=== PATIENT | female | born 1985 | race Caucasian/White ===

== ENCOUNTER 2018-02-02 12:26 | Emergency (ER) | payer BC ==
[~2018-02-02] VITALS: Ht 152.4 cm; Wt 45.8 kg
[2018-02-02] MEDS ORDERED: SYNTHROID25 MCG ORAL (12:35)
--- NOTE | 2018-02-02 12:42 | Emergency Room Report ---
History of Present Illness General Chief Complaint: Eye Problems Source: Patient Present Illness HPI 32-year-old female patient presents ER complaining of right side foreign-body sensation. Patient reports that she was working at her computer when she suddenly felt like "something in my eye". Reports feels like its under upper eyelid. Reports that she attempted to "remove it for the past hour". patient denies vision loss, redness, itching, other patient problems. Denies wearing contacts or glasses. Denies exposure to chemicals or other liquids into eye. Denies fever, chest pain, shortness of breath. States up to date on tetanus vaccination. Allergies: Coded Allergies: SULFA (SULFONAMIDE ANTIBIOTICS) (Verified Allergy, Unknown, 02/02/18) Patient History Past Medical History: see triage record Now: No Reviewed Nursing Documentation: PMH: Agreed; PSxH: Agreed Nursing Documentation-PMH Past Medical History: No History, Except For Hx Diabetes: No - hypothyroid Review of Systems All Other Systems: negative except mentioned in HPI Physical Exam Vital Signs Date Time Temp Pulse Resp B/P (MAP) Pulse Ox O2 Delivery O2 Flow Rate FiO2 02/02/18 12:30 98.4 92 18 108/78 99 Room Air Sp02 EP Interpretation: reviewed, normal General Appearance: well appearing, no apparent distress, alert, GCS 15, non- toxic Head: normocephalic, atraumatic Eyes: bilateral eye normal inspection, bilateral eye PERRL, bilateral eye EOMI ENT: hearing grossly normal, normal pharynx, no angioedema, normal voice, uvula midline, moist mucus membranes Neck: full range of motion Respiratory: lungs clear, normal breath sounds, no rhonchi, no respiratory distress, no accessory muscle use, no wheezing, speaking full sentences Cardiovascular #1: regular rate, rhythm, no edema Neurologic: alert, oriented x3, responsive, motor strength/tone normal, sensory intact Psychiatric: mood/affect normal Skin: no rash Medical Decision Making PA Attestation Dr. Whipple is my supervising Physician whom patient management has been discussed with. Diagnostic Impression: Primary Impression: Sensation of foreign body in eye ER Course Pt. presents to the ED c/o foreign body sensation right eye. Ddx considered but are not limited to FB in eye, corneal abrasion, corneal ulcer , blepharitis, orbital blowout fracture, subconjunctival hemorrhage. Patient has no signs of surrounding cellulitis, no pain with eye movement, does not require imaging at this time. No reduction in VA, no cilliary flush, no photophobia, no corneal opacity, low suspicion for keratitis, iritis. Vital signs: are WNL, pt. is afebrile VISUAL ACUITY, see Nurse's note ER COURSE: on physical exam, no conjunctival injection, no visualized foreign body. On fluorescein stain, no corneal abrasion, negative Elena sign, no rust ring. no foreign body visualized with lid eversion. Eye flushed with Jakob's lens and 500cc NS. following eye flushing, patient reports pain symptoms improved, no longer feeling foreign body in eye. Will provided patient with erythromycin ophthalmic antibiotics to prevent infection. advised to take Tylenol for pain. Followup with marketing content specialist in 24 hours. ER precautions given. DISCHARGE: - Rx provided for erythromycin At this time pt. is stable for d/c to home. Will provide printed patient care instructions and any necessary prescriptions. Care plan and follow up instructions have been discussed with the patient prior to discharge Follow-up with enterprise systems architect in 24 hours. Follow-up with primary care provider in 3 -5 days. Take medications as directed. Patient questions asked and answered. ER precautions given, patient instructed to return to ER immediately for any new or worsening of symptoms. - Please note that this Emergency Department Report was dictated using Domino Streetsecretary receptionist technology software, occasionally this can lead to erroneous entry secondary to interpretation by the dictation equipment. Last Vital Signs Date Time Temp Pulse Resp B/P (MAP) Pulse Ox O2 Delivery O2 Flow Rate FiO2 02/02/18 12:30 98.4 92 18 108/78 99 Room Air Status: improved Disposition: HOME, SELF-CARE Condition: Stable Scripts Erythromycin Base (ERYTHROMYCIN*) 3.5 Gm Oint...g. 1 APPLIC RIGHT EYE BID, #3.5 GM 0 Refills Prov: Kristian Franco 02/02/18 Patient Instructions: Corneal Abrasion, [id number], Eye Foreign Body, Easy-to -Read Additional Instructions: Followup with marketing content specialist in 24 hours. Followup with primary care provider in 2-3 days. Take medications as directed. Patient questions asked and answered. ER precautions given, patient instructed to return to ER immediately for any new or worsening of symptoms. Kristian Franco Feb 02, 2018 12:42
[2018-02-02] MEDS ORDERED: Fluorescein Strips RIGHT EYE ONE (12:45)
[2018-02-02] MEDS ORDERED: Tetracaine 0.5% Opth 4ml Soln RIGHT EYE ONE (12:45)
[2018-02-02 13:03] VITALS: BP 112/65
[2018-02-02] MEDS ORDERED: ERYTHROMYCIN3.5 GM RIGHT EYE (13:54)
[2018-02-02 14:00] VITALS: BP 112/65
== END 2018-02-02 14:01 | disposition home or self-care (01) ==
LOC: EMR 12:45
DX: T15.91XA Foreign body on external eye, part unspecified, right eye, initial encounter (principal); X58.XXXA Exposure to other specified factors, initial encounter; Z88.2 Allergy status to sulfonamides; E03.9 Hypothyroidism, unspecified
CPT/HCPCS: 99283

== ENCOUNTER 2018-12-02 00:46 | Emergency (ER) | payer BC ==
[~2018-12-02] VITALS: Ht 152.4 cm; Wt 52.2 kg
[~2018-12-02 00:46] MED LIST: ERYTHROMYCIN3.5 GM RIGHT EYE; SYNTHROID25 MCG ORAL
[2018-12-02 01:15] LABS: APPEARANCE,URINE CLEAR; BILIRUBIN, URINE NEGATIVE (NEGATIVE); COLOR,URINE PALE YELLOW; GLUCOSE, URINE (UA) NEGATIVE (NEGATIVE); KETONES,URINE NEGATIVE (NEGATIVE); LEUKOCYTE ESTERASE ,URINE 1+ (NEGATIVE); NITRITE,URINE NEGATIVE (NEGATIVE); PH,URINE 7 (4.5-8.0); PROTEIN,URINE NEGATIVE (NEGATIVE); UROBILINOGEN,URINE NORMAL MG/DL (0.0-1.0)
--- NOTE | 2018-12-02 01:19 | Emergency Room Report ---
History of Present Illness General Chief Complaint: Abdominal Pain Source: Patient Present Illness HPI Presents with lower abdominal pain. It began at 8 in the morning. It became severe. She has been vomiting. Slightly better now. She tried taking ketorolac. She is also has got epigastric burning at this time. She was concerned because she felt that she was about to pass out. She does not believe she is at this time. Not taking control. She has had severe pain like this in the past. She had multiple ultrasounds in the past they have all been normal. She denies any fevers or chills. There is no dysuria. She feels nauseated also but no vomiting. No change in bowels. No fevers and chills. No headache. No vaginal discharge aside from beginning her normal menstrual bleeding. No chest pain or dyspnea. No headache. 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: current Reviewed Nursing Documentation: PMH: Agreed; PSxH: Agreed Nursing Documentation-PMH Hx Diabetes: No - hypothyroid Review of Systems All Other Systems: negative except mentioned in HPI Physical Exam Vital Signs Date Time Temp Pulse Resp B/P (MAP) Pulse Ox O2 Delivery O2 Flow Rate FiO2 12/02/18 00:49 98.1 117/76 (90) Sp02 EP Interpretation: reviewed, normal General Appearance: well appearing, GCS 15, mild distress - With pain Head: normocephalic Eyes: bilateral eye normal inspection, bilateral eye PERRL, bilateral eye EOMI ENT: moist mucus membranes Neck: supple Respiratory: lungs clear, normal breath sounds Cardiovascular #1: regular rate, rhythm Cardiovascular #2: 2+ radial (R) Gastrointestinal: normal inspection, normal bowel sounds, no mass, non- distended, no guarding, no rebound, tenderness - Suprapubic Genitourinary: no CVA tenderness, deferred - Pelvic exam not indicated Musculoskeletal: back normal, gait/station normal, normal range of motion Neurologic: alert, oriented x3, grossly normal Psychiatric: mood/affect normal - In pain Skin: no rash Medical Decision Making Diagnostic Impression: Primary Impression: Painful menstruation Additional Impression: Epigastric pain ER Course Patient presents with suprapubic pain coinciding with the beginning of her menstruation. Differential includes ectopic , urinary tract infection , ruptured ovarian cyst, dysmenorrhea, pelvic inflammatory disease, urinary tract infection amongst others. In addition she has epigastric burning. This is consistent with taking ketorolac. Based on exam doubt gallbladder or pancreatic etiologies. She states this is similar to the pain she has had before but this time felt almost near to passing out. Evaluation with labs. Based on history and exam ultrasound not indicated at this time. The patient will be treated with analgesia and also Pepcid and Reglan. Labs unremarkable. Slightly elevated BUN. Normal white count and H&H. Patient improved with treatment. Still complaining about epigastric burning. Mylanta and fentanyl ordered. Patient improved with treatment. Tolerating oral intake. Discussed treatment plan and the need to follow-up with her PHILOSOPHY FACULTY MEMBER. Also advised to return if pain is out of control or vomiting or fevers. Patient is stable for outpatient observation and treatment. Laboratory Tests Test 12/02/18 01:00 12/02/18 01:25 Urine Color Pale yellow Urine Appearance Clear Urine pH 7 (4.5-8.0) Urine Specific [place] 1.005 (1.005-1.035) Urine Protein Negative (NEGATIVE) Urine Glucose (UA) Negative (NEGATIVE) Urine Ketones Negative (NEGATIVE) Urine Blood 2+ (NEGATIVE) H Urine Nitrite Negative (NEGATIVE) Urine Bilirubin Negative (NEGATIVE) Urine Urobilinogen Normal MG/DL (0.0-1.0) Urine Leukocyte Esterase 1+ (NEGATIVE) H Urine RBC 5-10 /HPF (0 - 2) H Urine WBC 0-2 /HPF (0 - 2) Urine Squamous Epithelial Cells Few /LPF (NONE/OCC) Urine Bacteria None /HPF (NONE) Urine HCG, Qualitative Negative (NEGATIVE) White Blood Count 9.0 K/UL (4.8-10.8) Red Blood Count 3.92 M/UL (4.20-5.40) L Hemoglobin 12.7 G/DL (12.0-16.0) Hematocrit 36.6 % (37.0-47.0) L Mean Corpuscular Volume 94 FL (80-99) Mean Corpuscular Hemoglobin 32.4 PG (27.0-31.0) H Mean Corpuscular Hemoglobin Concent 34.7 G/DL (32.0-36.0) Red Cell Distribution Width 10.7 % (11.6-14.8) L Platelet Count 165 K/UL (150-450) Mean Platelet Volume 7.8 FL (6.5-10.1) Neutrophils (%) (Auto) 62.1 % (45.0-75.0) Lymphocytes (%) (Auto) 30.7 % (20.0-45.0) Monocytes (%) (Auto) 5.0 % (1.0-10.0) Eosinophils (%) (Auto) 1.4 % (0.0-3.0) Basophils (%) (Auto) 0.8 % (0.0-2.0) Prothrombin Time 10.0 SEC (9.30-11.50) Prothrombin Time INR 0.9 (0.9-1.1) PTT 24 SEC (23-33) Sodium Level 143 MMOL/L (136-145) Potassium Level 4.1 MMOL/L (3.5-5.1) Chloride Level 108 MMOL/L (98-107) H Carbon Dioxide Level 27 MMOL/L (21-32) Anion Gap 8 mmol/L (5-15) Blood Urea Nitrogen 26 mg/dL (7-18) H Creatinine 0.9 MG/DL (0.55-1.30) Estimate Glomerular Filtration Rate > 60 mL/min (>60) Glucose Level 95 MG/DL (74-106) Calcium Level 9.3 MG/DL (8.5-10.1) Total Bilirubin 0.3 MG/DL (0.2-1.0) Aspartate Amino Transferase (AST) 19 U/L (15-37) Alanine Aminotransferase (ALT) 14 U/L (12-78) Alkaline Phosphatase 44 U/L (46-116) L Total Protein 6.4 G/DL (6.4-8.2) Albumin 3.5 G/DL (3.4-5.0) Globulin 2.9 g/dL Albumin/Globulin Ratio 1.2 (1.0-2.7) Lipase 214 U/L (73-393) Last Vital Signs Date Time Temp Pulse Resp B/P (MAP) Pulse Ox O2 Delivery O2 Flow Rate FiO2 12/02/18 03:55 98.4 78 20 119/73 98 Status: improved Disposition: HOME, SELF-CARE Condition: Improved Scripts Mag Hydrox/Al Hydrox/Simeth (MAALOX MAXIMUM STRENGTH SUSP) 355 Ml Oral.susp 30 ML PO Q6HR PRN for epigastric pain, #240 ML Prov: Charles Dias MD 12/02/18 Hydrocodone Bit/Acetaminophen 5-325* (NORCO 5-325*) 1 Each Tablet 1 TAB ORAL Q6H PRN for For Pain, #6 TAB 0 Refills Prov: Charles Dias MD 12/02/18 Charles Dias MD Dec 02, 2018 01:19
[2018-12-02] MEDS ORDERED: Ketorolac 30mg Inj IV ONE (01:30)
[2018-12-02 01:34] LABS: BASOPHILS % (AUTO) 0.8 % (0.0-2.0); EOSINOPHILS % (AUTO) 1.4 % (0.0-3.0); HEMATOCRIT 36.6 % (37.0-47.0); HEMOGLOBIN 12.7 G/DL (12.0-16.0); LYMPHOCYTES % (AUTO) 30.7 % (20.0-45.0); MEAN CORPUSCULAR VOLUME 94 FL (80-99); NEUTROPHILS % (AUTO) 62.1 % (45.0-75.0); PLATELET COUNT 165 K/UL (150-450); RED BLOOD COUNT 3.92 M/UL (4.20-5.40); RED CELL DISTRIBUTION WIDTH 10.7 % (11.6-14.8)
[2018-12-02 01:48] LABS: ANION GAP 8 mmol/L (5-15); BLOOD UREA NITROGEN 26 mg/dL (7-18); CALCIUM 9.3 MG/DL (8.5-10.1); CARBON DIOXIDE 27 MMOL/L (21-32); CHLORIDE 108 MMOL/L (98-107); CREATININE 0.9 MG/DL (0.55-1.30); POTASSIUM 4.1 MMOL/L (3.5-5.1); SODIUM 143 MMOL/L (136-145)
[2018-12-02 01:52] LABS: ALANINE AMINOTRANSFERASE 14 U/L (12-78); ALBUMIN 3.5 G/DL (3.4-5.0); ALBUMIN/GLOBULIN RATIO 1.2 (1.0-2.7); ALKALINE PHOSPHATASE 44 U/L (46-116); ASPARTATE AMINO TRANSFERASE 19 U/L (15-37); BILIRUBIN,TOTAL 0.3 MG/DL (0.2-1.0)
[2018-12-02 02:08] LABS: INR 0.9 (0.9-1.1)
[2018-12-02] MEDS ORDERED: Mylanta II UD 30ml ORAL ONE (02:15)
[2018-12-02 02:30] VITALS: BP 121/79
[2018-12-02] MEDS ORDERED: fentaNYL 100 mcg/2 mL IV ONE (03:00)
[2018-12-02 03:30] VITALS: BP 119/73
[2018-12-02] MEDS ORDERED: MAALOX MAXIMUM355 M1 PO (03:44)
[2018-12-02] MEDS ORDERED: NORCO 5-325 TA1 EACH ORAL (03:44)
[2018-12-02 03:55] VITALS: BP 119/73
== END 2018-12-02 03:55 | disposition home or self-care (01) ==
LOC: EMR 01:20
DX: N94.6 Dysmenorrhea, unspecified (principal); R10.13 Epigastric pain; E03.9 Hypothyroidism, unspecified; Z88.2 Allergy status to sulfonamides
CPT/HCPCS: 36415; 80053; 81003; 81025; 83690; 85025; 85610; 85730; 96361; 96374; 96375; 99284; J1885; J2405; J3010; S0028

== ENCOUNTER 2019-12-06 11:00 | Emergency (ER) | payer BC ==
[~2019-12-06] VITALS: Ht 152.4 cm; Wt 52.2 kg
[~2019-12-06 11:00] MED LIST changes: +MAALOX MAXIMUM355 M1 PO; +NORCO 5-325 TA1 EACH ORAL
[2019-12-06] MEDS ORDERED: DiphenhydrAMINE 50mg/ml Inj IVP ONE (11:15)
[2019-12-06] MEDS ORDERED: Solu-MEDROL 125mg Inj IVP ONE (11:15)
--- NOTE | 2019-12-06 11:20 | NUR ---
ED Nurse Note: Unable to waste Benadryl 25 mg in system due to computer not loading. CN and special technical operations officer notified.
--- NOTE | 2019-12-06 11:30 | NUR ---
ED Nurse Note: Pt walked into ED for possible allergic reaction since 2 hours ago. She thinks they are from bug bites around bilateral ankles and feet. She feels as if throat is itchy and has cough since today. Denies nausea/vomiting.
--- NOTE | 2019-12-06 11:36 | Emergency Room Report ---
History of Present Illness General Chief Complaint: Skin Rash/Abscess Source: Patient Present Illness HPI Patient is a 34-year-old female denies any significant past medical history who presents to the ER complaining of allergic reaction to bug bites on her feet. Patient states that she has had multiple allergic reactions to bug bites in the past. She has Benadryl, Monik and prednisone if needed. She states that she took Monik but has not taken anything else. Patient states that she was bit 2 days ago. Patient states that today she started having shortness of breath and cough. She appears to be anxious. She denies any fever or chills. She denies any chest pain. She denies any recent travel. She denies any lower extremity pain or edema. She denies any history of smoking or drug use. She denies any family history of sudden or early cardiovascular disease. 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 COVID-19 Screening: Negative COVID-19 COVID-19 Testing Source: [facility] 1 month ago Patient History Now: No Reviewed Nursing Documentation: PMH: Agreed; PSxH: Agreed Nursing Documentation-PMH Past Medical History: No History, Except For Hx Diabetes: No - hypothyroid Review of Systems All Other Systems: negative except mentioned in HPI Physical Exam Vital Signs Date Time Temp Pulse Resp B/P (MAP) Pulse Ox O2 Delivery O2 Flow Rate FiO2 12/06/19 11:04 98.1 83 15 109/77 (88) 97 Room Air Sp02 EP Interpretation: reviewed, normal General Appearance: no apparent distress, alert, GCS 15, non-toxic Head: normocephalic, atraumatic Eyes: bilateral eye normal inspection, bilateral eye PERRL ENT: hearing grossly normal, normal pharynx, no angioedema, normal voice Neck: full range of motion, supple/symm/no masses Respiratory: chest non-tender, lungs clear, normal breath sounds, speaking full sentences Cardiovascular #1: regular rate, rhythm, no edema Gastrointestinal: normal bowel sounds, non tender, soft, non-distended, no guarding, no rebound Rectal: deferred Musculoskeletal: no calf tenderness, no lower extremity edema Neurologic: supervising architect III-XII nml as tested, oriented x3 Psychiatric: no suicidal/homicidal ideation, anxious Skin: other - Small bug bites with surrounding erythema to bilateral feet minimal edema Lymphatic: no adenopathy Medical Decision Making Diagnostic Impression: Primary Impression: Rash and other nonspecific skin eruption Additional Impression: Dyspnea ER Course Patient's vital signs stable. She appears anxious. Patient given Benadryl and IV steroids. She already has a Solu-Medrol Dosepak and allergy medicine at home. Patient also complained of some shortness of breath and cough. Her chest x-ray demonstrates no acute cardiopulmonary pathology. I suspect the sob the patient is presenting with is atypical in nature. Aortic dissection was considered but in the physical exam the patient has equal pulses in all extremities, no new focal neurological deficits, no apparent diastolic murmur on the cardiac exam, and no widening of the mediastinum on CXR. Pulmonary embolism was also considered however I believe patient to be low risk given d-dimer normal, normal heart rate, no evidence of hypoxemia, no significant unilateral leg swelling, no recent travel, no history of cancer, no right axis deviation on EKG, and no recent surgery. I also doubt that this is acute coronary syndrome since EKG shows no STEMI, troponin is normal, and no chest pain. The patient was counseled that, though unlikely, the possibility of an emergent cause of chest pain may still be present and that the patient should return immediately if symptoms persists or worsen. I believe the patient is stable for discharge to follow-up with their PMD. Laboratory Tests Test 12/06/19 11:30 White Blood Count 5.1 K/UL (4.8-10.8) Red Blood Count 4.55 M/UL (4.20-5.40) Hemoglobin 14.2 G/DL (12.0-16.0) Hematocrit 41.6 % (37.0-47.0) Mean Corpuscular Volume 91 FL (80-99) Mean Corpuscular Hemoglobin 31.3 PG (27.0-31.0) H Mean Corpuscular Hemoglobin Concent 34.2 G/DL (32.0-36.0) Red Cell Distribution Width 11.7 % (11.6-14.8) Platelet Count 217 K/UL (150-450) Mean Platelet Volume 9.4 FL (6.5-10.1) Neutrophils (%) (Auto) 46.3 % (45.0-75.0) Lymphocytes (%) (Auto) 43.6 % (20.0-45.0) Monocytes (%) (Auto) 7.3 % (1.0-10.0) Eosinophils (%) (Auto) 1.3 % (0.0-3.0) Basophils (%) (Auto) 1.5 % (0.0-2.0) D-Dimer 0.32 mg/L FEU (0.00-0.49) Urine Color Pale yellow Urine Appearance Clear Urine pH 8 (4.5-8.0) Urine Specific [place] 1.005 (1.005-1.035) Urine Protein Negative (NEGATIVE) Urine Glucose (UA) Negative (NEGATIVE) Urine Ketones Negative (NEGATIVE) Urine Blood Negative (NEGATIVE) Urine Nitrite Negative (NEGATIVE) Urine Bilirubin Negative (NEGATIVE) Urine Urobilinogen Normal MG/DL (0.0-1.0) Urine Leukocyte Esterase Negative (NEGATIVE) Urine HCG, Qualitative Negative (NEGATIVE) Sodium Level 137 MMOL/L (136-145) Potassium Level 4.1 MMOL/L (3.5-5.1) Chloride Level 103 MMOL/L (98-107) Carbon Dioxide Level 28 MMOL/L (21-32) Anion Gap 6 mmol/L (5-15) Blood Urea Nitrogen 15 mg/dL (7-18) Creatinine 0.8 MG/DL (0.55-1.30) Estimated Glomerular Filtration Rate > 60 mL/min (>60) Glucose Level 97 MG/DL (74-106) Calcium Level 9.3 MG/DL (8.5-10.1) Magnesium Level 2.3 MG/DL (1.8-2.4) Total Bilirubin 0.5 MG/DL (0.2-1.0) Aspartate Amino Transferase (AST) 18 U/L (15-37) Alanine Aminotransferase (ALT) 26 U/L (12-78) Alkaline Phosphatase 51 U/L (46-116) Troponin I 0.000 ng/mL (0.000-0.056) Total Protein 7.3 G/DL (6.4-8.2) Albumin 4.0 G/DL (3.4-5.0) Globulin 3.3 g/dL Albumin/Globulin Ratio 1.2 (1.0-2.7) EKG Diagnostic Results EKG Time: 11:30 EP Interpretation: Mckenna Mehta MD Rate: normal - 84 bpm Rhythm: NSR ST Segments: no acute changes ASA given to the pt in ED: No Chest X-Ray Diagnostic Results Chest X-Ray Diagnostic Results : Chest X-Ray Ordered: Yes # of Views/Limited/Complete: 1 View Indication: Shortness of Breath EP Interpretation: Yes Interpretation: no consolidation, no effusion, no pneumothorax, no acute cardiopulmonary disease Impression: No acute disease Electronically Signed by: Mckenna Mehta MD Last Vital Signs Date Time Temp Pulse Resp B/P (MAP) Pulse Ox O2 Delivery O2 Flow Rate FiO2 12/06/19 11:04 98.1 83 15 109/77 (88) 97 Room Air Disposition: HOME, SELF-CARE Condition: Stable Additional Instructions: The patient was provided with discharge instructions, notified to follow-up with a primary care doctor and or specialist in the next 24-48 hours, and to return to the ED if they have worsening of their symptoms. Please note that this report is being documented using EVR[employer] technology. This can lead to erroneous entry secondary to incorrect interpretation by the dictating instrument. Mckenna Mehta M.D. Dec 06, 2019 11:36
[2019-12-06 11:56] VITALS: BP 112/78
--- NOTE | 2019-12-06 12:00 | Diagnostic Imaging Report ---
EXAM: XR Chest, 1 View CLINICAL HISTORY: SOB TECHNIQUE: Frontal view of the chest. COMPARISON: None FINDINGS: Hardware: None. Lungs/pleura: Hyperinflation of the lungs. No focal consolidation. No pleural effusion or pneumothorax. Heart/mediastinum: Normal. No cardiomegaly. Soft tissues: Unremarkable. Bones: No acute fracture. Upper abdomen: Normal. IMPRESSION: No acute disease identified.
[2019-12-06 12:33] LABS: BASOPHILS % (AUTO) 1.5 % (0.0-2.0); EOSINOPHILS % (AUTO) 1.3 % (0.0-3.0); HEMATOCRIT 41.6 % (37.0-47.0); HEMOGLOBIN 14.2 G/DL (12.0-16.0); LYMPHOCYTES % (AUTO) 43.6 % (20.0-45.0); MEAN CORPUSCULAR VOLUME 91 FL (80-99); MONOCYTES % (AUTO) 7.3 % (1.0-10.0); NEUTROPHILS % (AUTO) 46.3 % (45.0-75.0); PLATELET COUNT 217 K/UL (150-450); RED BLOOD COUNT 4.55 M/UL (4.20-5.40); RED CELL DISTRIBUTION WIDTH 11.7 % (11.6-14.8); WHITE BLOOD COUNT 5.1 K/UL (4.8-10.8)
[2019-12-06 12:48] LABS: ANION GAP 6 mmol/L (5-15); APPEARANCE,URINE CLEAR; BILIRUBIN, URINE NEGATIVE (NEGATIVE); BLOOD UREA NITROGEN 15 mg/dL (7-18); CALCIUM 9.3 MG/DL (8.5-10.1); CARBON DIOXIDE 28 MMOL/L (21-32); CHLORIDE 103 MMOL/L (98-107); COLOR,URINE PALE YELLOW; CREATININE 0.8 MG/DL (0.55-1.30); GLUCOSE, URINE (UA) NEGATIVE (NEGATIVE); KETONES,URINE NEGATIVE (NEGATIVE); LEUKOCYTE ESTERASE ,URINE NEGATIVE (NEGATIVE); NITRITE,URINE NEGATIVE (NEGATIVE); PH,URINE 8 (4.5-8.0); POTASSIUM 4.1 MMOL/L (3.5-5.1); PROTEIN,URINE NEGATIVE (NEGATIVE); SODIUM 137 MMOL/L (136-145); UROBILINOGEN,URINE NORMAL MG/DL (0.0-1.0)
[2019-12-06 12:59] LABS: ALANINE AMINOTRANSFERASE 26 U/L (12-78); ALBUMIN/GLOBULIN RATIO 1.2 (1.0-2.7); ALKALINE PHOSPHATASE 51 U/L (46-116); ASPARTATE AMINO TRANSFERASE 18 U/L (15-37); BILIRUBIN,TOTAL 0.5 MG/DL (0.2-1.0)
[2019-12-06 13:32] VITALS: BP 133/76
--- NOTE | 2019-12-06 13:32 | NUR ---
ER DISCHARGE NOTE: Patient is cleared to be discharged per ERMD, pt is aox4, on room air, with stable vital signs. pt was given dc and prescription instructions, pt was able to verbalize understanding, pt id band removed. pt is able to ambulate with steady gait. pt took all belongings.
== END 2019-12-06 13:33 | disposition home or self-care (01) ==
LOC: EMR 12:18
DX: R21 Rash and other nonspecific skin eruption (principal); R06.00 Dyspnea, unspecified; E03.9 Hypothyroidism, unspecified; Z88.2 Allergy status to sulfonamides
CPT/HCPCS: 36415; 71045; 80053; 81003; 81025; 83735; 84484; 85025; 85379; 93005; 96361; 96374; 96375; 99284; J1200; J2930; J7030